=== PATIENT | male | born 1985 | race African-American/Black ===

== ENCOUNTER 2018-02-23 14:39 | Emergency (ER) | payer SELFPAY ==
--- NOTE | 2018-02-23 15:24 | ER ---
Nurse's Notes [facility] Name: Jose Matos Jr Age: 32 yrs Sex: Male : 1985 Arrival Date: 02/23/2018 Time: 14:44 Bed 13 Private MD: Diagnosis: Cutaneous abscess of other sites Presentation: 02/23 14:53 Presenting complaint: Patient states: I have an abscess on my inner thigh." Pt reports ph quarter sized abscess to L inner thigh, denies fever. Transition of care: patient was not received from another setting of care. Onset of symptoms was February 23, 2018. Care prior to arrival: None. 14:53 Method Of Arrival: Ambulatory ph 14:53 Acuity: ZIGGY 4 ph Historical: - Allergies: 14:55 No Known Allergies; ph - Home Meds: 14:55 None [Active]; ph - PMHx: 14:55 None; ph - PSHx: 14:55 None; ph - Immunization history:: Adult Immunizations up to date. - Social history:: Smoking status: Patient/guardian denies using tobacco. Screenin:36 Abuse screen: Denies threats or abuse. Denies injuries from another. Nutritional aj1 screening: No deficits noted. Tuberculosis screening: No symptoms or risk factors identified. 16:06 Fall Risk None identified. aj1 Assessment: 15:36 General: Appears in no apparent distress. comfortable, Behavior is calm, cooperative, aj1 appropriate for age. Pain: Complains of pain in medial aspect of left thigh Pain does not radiate. Neuro: Level of Consciousness is awake, alert, obeys commands, Oriented to person, place, time, situation, Speech is normal, Facial symmetry appears normal. Cardiovascular: Patient's skin is warm and dry. Respiratory: Airway is patent Respiratory effort is even, unlabored, Respiratory pattern is regular, symmetrical. GI: No signs and/or symptoms were reported involving the gastrointestinal system. : No signs and/or symptoms were reported regarding the genitourinary system. EENT: No signs and/or symptoms were reported regarding the EENT system. Derm: Abscess located on medial aspect of left thigh is quarter sized, is red, is raised. Musculoskeletal: No signs and/or symptoms reported regarding the musculoskeletal system. Circulation, motion, and sensation intact. Vital Signs: 14:55 BP 130 / 89; Pulse 103; Resp 18; Temp 99.0; Pulse Ox 100% on R/A; Weight 97.52 kg; ph Height 5 ft. 9 in. (175.26 cm); Pain 10/10; 14:55 Body Mass Index 31.75 (97.52 kg, 175.26 cm) ph ED Course: 14:44 Patient arrived in ED. sb2 14:54 Triage completed. ph 14:55 Arm band placed on. ph 15:06 [facility]ouss[facility]C [facility]. snw 15:06 Tiburcio Jarvis MD is Attending Physician. snw 15:15 Elina Sanchez, RN is Primary Nurse. aj1 15:36 Patient has correct armband on for positive identification. Bed in low position. Call aj1 light in reach. Side rails up X 1. 15:36 No provider procedures requiring assistance completed. Patient did not have IV access aj1 during this emergency room visit. Administered Medications: 15:32 Drug: [place] 10 mg-325 mg 1 tabs Route: PO; aj1 16:05 Follow up: Response: No adverse reaction aj1 15:33 Drug: Doxycycline 100 mg Route: PO; aj1 16:05 Follow up: Response: No adverse reaction aj1 16:01 Drug: Bactroban Ointment 2 % 1 application Route: Topical; Site: affected area; aj1 16:05 Follow up: Response: No adverse reaction aj1 Outcome: 15:23 Discharge ordered by . snw 16:06 Discharged to home ambulatory. aj1 16:06 Condition: good 16:06 Discharge instructions given to patient, Instructed on discharge instructions, follow up and referral plans. medication usage, Demonstrated understanding of instructions, follow-up care, medications, Prescriptions given X 3. 16:07 Patient left the ED. aj1 Signatures: Elina Sanchez, RN RN aj1 Carmen Broussard FNP-C FNP-Lizeth Kirby RN RN Shelia Arndt sb2
[2018-02-23] MEDS ORDERED: HYDROCODONE/APAP 10/325 TAB ONE (15:25)
[2018-02-23] MEDS ORDERED: DOXYCYCLINE 100 MG CAP PO ONE (15:25)
--- NOTE | 2018-02-23 15:25 | EDPHYS ---
Physician Documentation [facility] Name: Jose Matos Jr Age: 32 yrs Sex: Male : 1985 Arrival Date: 02/23/2018 Time: 14:44 Bed 13 Private MD: ED Physician Tiburcio Jarvis HPI: 02/23 15:44 This 32 yrs old Black Male presents to ER via Ambulatory with complaints of Abscess. snw 15:44 The patient presents with an abscess of the medial aspect of left thigh. Description: snw well demarcated, area tense. Onset: The symptoms/episode began/occurred gradually, 2 day(s) ago. Possible cause(s): unknown. Associated signs and symptoms: Pertinent positives: swelling, pain, Pertinent negatives: fever. Modifying factors: the symptoms are alleviated by nothing, the symptoms are aggravated by pressure. Severity of symptoms: At their worst the symptoms were moderate. The patient has experienced a previous episode, approximately 2 months ago. It is unknown whether or not the patient has recently seen a physician. Historical: - Allergies: 14:55 No Known Allergies; ph - Home Meds: 14:55 None [Active]; ph - PMHx: 14:55 None; ph - PSHx: 14:55 None; ph - Immunization history:: Adult Immunizations up to date. - Social history:: Smoking status: Patient/guardian denies using tobacco. ROS: 15:43 Constitutional: Negative for fever, chills, and weight loss, Eyes: Negative for injury, snw pain, redness, and discharge, ENT: Negative for injury, pain, and discharge, Neck: Negative for injury, pain, and swelling, Cardiovascular: Negative for chest pain, palpitations, and edema, Respiratory: Negative for shortness of breath, cough, wheezing, and pleuritic chest pain, Abdomen/GI: Negative for abdominal pain, nausea, vomiting, diarrhea, and constipation, Back: Negative for injury and pain, : Negative for injury, bleeding, discharge, and swelling, MS/Extremity: Negative for injury and deformity, Neuro: Negative for headache, weakness, numbness, tingling, and seizure, Psych: Negative for depression, anxiety, suicide ideation, homicidal ideation, and hallucinations. 15:43 Skin: Positive for abscess, of the medial aspect of left thigh. Exam: 15:33 Constitutional: This is a well developed, well nourished patient who is awake, alert, snw and in no acute distress. Head/Face: Normocephalic, atraumatic. Eyes: Pupils equal round and reactive to light, extra-ocular motions intact. Lids and lashes normal. Conjunctiva and sclera are non-icteric and not injected. Cornea within normal limits. Periorbital areas with no swelling, redness, or edema. ENT: Nares patent. No nasal discharge, no septal abnormalities noted. Tympanic membranes are normal and external auditory canals are clear. Oropharynx with no redness, swelling, or masses, exudates, or evidence of obstruction, uvula midline. Mucous membranes moist. Neck: Trachea midline, no thyromegaly or masses palpated, and no cervical lymphadenopathy. Supple, full range of motion without nuchal rigidity, or vertebral point tenderness. No Meningismus. Chest/axilla: Normal chest wall appearance and motion. Nontender with no deformity. No lesions are appreciated. Cardiovascular: Regular rate and rhythm with a normal S1 and S2. No gallops, murmurs, or rubs. Normal PMI, no JVD. No pulse deficits. Respiratory: Lungs have equal breath sounds bilaterally, clear to auscultation and percussion. No rales, rhonchi or wheezes noted. No increased work of breathing, no retractions or nasal flaring. Abdomen/GI: Soft, non-tender, with normal bowel sounds. No distension or tympany. No guarding or rebound. No evidence of tenderness throughout. Back: No spinal tenderness. No costovertebral tenderness. Full range of motion. MS/ Extremity: Pulses equal, no cyanosis. Neurovascular intact. Full, normal range of motion. Neuro: Awake and alert, GCS 15, oriented to person, place, time, and situation. Cranial nerves II-XII grossly intact. Motor strength 5/5 in all extremities. Sensory grossly intact. Cerebellar exam normal. Normal gait. Psych: Awake, alert, with orientation to person, place and time. Behavior, mood, and affect are within normal limits. 15:33 Skin: Appearance: normal except for affected area, Color: normal in color, abscess, that is moderate sized, of the medial aspect of left thigh, with induration. Vital Signs: 14:55 BP 130 / 89; Pulse 103; Resp 18; Temp 99.0; Pulse Ox 100% on R/A; Weight 97.52 kg; ph Height 5 ft. 9 in. (175.26 cm); Pain 10/10; 14:55 Body Mass Index 31.75 (97.52 kg, 175.26 cm) ph MDM: 15:06 Patient medically screened. snw 15:43 Data reviewed: vital signs, nurses notes. Data interpreted: Pulse oximetry: on room air snw is 100 %. Interpretation: normal. Counseling: I had a detailed discussion with the patient and/or guardian regarding: the historical points, exam findings, and any diagnostic results supporting the discharge/admit diagnosis, the presence of at least one elevated blood pressure reading (>120/80) during this emergency department visit, the need for outpatient follow up, to return to the emergency department if symptoms worsen or persist or if there are any questions or concerns that arise at home. Special discussion: Based on the history and exam findings, there is no indication for further emergent testing or inpatient evaluation. I discussed with the patient/guardian the need to see the general surgeon for further evaluation of the symptoms. I discussed with the patient/guardian the need to see the primary care provider for further evaluation of the symptoms. Administered Medications: 15:32 Drug: [place] 10 mg-325 mg 1 tabs Route: PO; [facility] 16:05 Follow up: Response: No adverse reaction [facility] 15:33 Drug: Doxycycline 100 mg Route: PO; aj1 16:05 Follow up: Response: No adverse reaction aj 16:01 Drug: Bactroban Ointment 2 % 1 application Route: Topical; Site: affected area; aj 16:05 Follow up: Response: No adverse reaction [facility] Disposition: 02/23/18 15:23 Discharged to Home. Impression: Cutaneous abscess of other sites. - Condition is Stable. - Discharge Instructions: Abscess, Sitz Bath, Heat Therapy. - Prescriptions for Bactroban 2 % Topical Ointment - Apply to affected area 1 application by TOPICAL route every 12 hours; 30 gram. Doxycycline Hyclate 100 mg Oral Tablet - take 1 tablet by ORAL route every 12 hours; 20 tablet. Diclofenac Sodium 75 mg Oral Tablet Sustained Release - take 1 tablet by ORAL route 2 times per day; 30 tablet. - Work release form, Medication Reconciliation Form, Thank You Letter, Antibiotic Education, Prescription Opioid Use form. - Follow up: Private Physician; When: 2 - 3 days; Reason: Recheck today's complaints, Continuance of care, Re-evaluation by your physician. Follow up: Emergency Department; When: As needed; Reason: Worsening of condition. Addendum: 02/25/2018 07:32 Co-signature as Attending Physician, Tiburcio Jarvis MD I agree with the assessment and w a plan of care. Signatures: Elina Sanchez RN RN aj1 Carmen Broussard, STATE MANAGER-C STATE MANAGER-Csnw Lizeth Tapia, RN RN Simona, MD KRISTEL Dey ma
[2018-02-23] MEDS ORDERED: MUPIROCIN 2% OINT 22GM TUBE TOP ONE ×2 (15:55→15:56)
== END 2018-02-23 16:07 | disposition home or self-care (01) ==
LOC: ER 14:39
DX: L02.416 Cutaneous abscess of left lower limb (principal)
CPT/HCPCS: 99283